=== PATIENT | male | born 1935 | race Caucasian/White ===

== ENCOUNTER 2023-07-27 17:38 | Emergency (ER) | payer OTHER, SELFPAY ==
[2023-07-27] VITALS (13 sets, daily range): BP systolic 168–245; BP diastolic 84–112; PULSE 58–88; RESP 20; TEMP 36.6; O2SAT 95–98
--- NOTE | 2023-07-27 17:30 | DI.RAD_ITS ---
Exam(s) XR HAND LT COMPLETE EXAM: XR HAND LT COMPLETE CLINICAL HISTORY: Fracture 4th and 5th finger. TECHNIQUE: 2D digital imaging was performed. COMPARISON: No exams were available for comparison FINDINGS: 3 views There is dislocation of the proximal interphalangeal joint of the 4th-ring finger. Multiple tiny hyp erdense foreign bodies are noted over the skin in this region. Overlapping bones on the lateral view makes accurate evaluation difficult. IMPRESSION: Dislocated proximal interphalangeal joint of the 4th-ring finger. DATA REPOSITORY: RADIATION DOSE DELIVERED:
--- NOTE | 2023-07-27 17:30 | DI.CT_ITS ---
Exam(s) CT HEAD FACIAL WO EXAM: CT HEAD FACIAL WO CLINICAL HISTORY: Fall, Left cheek injury. TECHNIQUE: Imaging Protocol: Axial computed tomography images with coronal and sagittal reformatted images were created and reviewed COMPARISON: No exams were available for comparison FINDINGS: BRAIN: There are no skull fractures nor fluid in the visualized paranasal sinuses. There is no evidence of intracranial hemorrhage, mass effect, or shift of midline structures. There are no extra-axial fluid collections. The ventricles are not enlarged or shifted and there is no blo od within the ventricular system nor within the basal cisterns. There is abundant bilateral periventricular hypodensity consistent with chronic small vessel disease. MAXILLOFACIAL CT SCAN: Mildly depressed predominately left-sided nasal bone fracture evident. No other facial fractures stephon ntified. No fluid in the paranasal sinuses. No evidence of orbital blowout fracture. IMPRESSION: No acute intracranial findings on this noninfused CT scan of the brain. Nasal bone fracture Called by myself to ER provider. RADIATION DOSE DELIVERED: Total DLP DATA REPOSITORY: All CT scans at this facility are submitted to the National Radiology Data Registry (NRDR) Dose Index Registry (DIR) with the [employer] (ACR). RADIATION OPTIMIZATION: All CT scans at this facility use at least one of these dose optimization te chniques: automated exposure control; mA and/or kV adjustment per patient size (includes targeted exa ms where dose is matched to clinical indication); or iterative reconstruction.
--- NOTE | 2023-07-27 17:44 | W.ED.GENAD ---
Discharge Plan Disposition Patient Disposition: Home Condition: Stable Discharge Details Clinical Impression: Dislocation of proximal interphalangeal joint of left ring finger, Closed head injury, Fall, Laceration of hand, left Primary Care Provider: Unknown,Unknown ED Provider: Josiane Lopez Meds and New Rx's Prescriptions: New cephalexin 500 mg tablet 500 mg PO BID 7 Days Qty: 14 0RF Continued atorvastatin 40 mg tablet 40 mg PO DAILY lisinopril 40 mg tablet 40 mg PO DAILY finasteride 5 mg tablet 5 mg PO DAILY Eliquis 2.5 mg tablet 2.5 mg PO BID tamsulosin 0.4 mg capsule 0.4 mg PO DAILY cyanocobalamin (vitamin B-12) 1,000 mcg capsule 1,000 mcg PO DAILY cholecalciferol (vitamin D3) [Vitamin D3] 50 mcg (2,000 unit) capsule 50 mcg PO QDAY Discharge Instructions Instructions: Laceration (ED), Head Injury (ED) Additional Instructions: Have sutures removed in 7-10 days. Leave the dressing on for the next 24 hours. After that you may take it off and wash under running soap and water. No soaking. Keep the splint on except for bathing for the next 7 days. There is no underlying broken bone but you did dislocate your finger. This was put back in place. Please take Tylenol or Ibuprofen with food every 4-6 hours as needed for pain and swelling. Apply ice and elevate in a couple of hours once the numbing medication wears off you will have some pain. There is also questionable left-sided broken nose noted on the CT. Is unclear whether this is new or old. Follow up with primary care provider in 3-5 days. Return to ED sooner if any worsening or concerns. Take the antibiotics as directed with yogurt or probiotic. Referrals: Primary Care Provider [Outside] - 1 week [facility] [Outside] - 5 days Discharge Data Discharge Date/Time-TO BE ENTERED AT DEPARTURE: 07/27/23 20:23 HPI General Mode of arrival: EMS. Date/Time Provider Initiated Documentation: 07/27/23 17:39. Limitations to Documentation: no limitations. Information obtained by: patient, EMS, RN notes reviewed and old records reviewed. HPI Narrative: 88-year-old male presents to the ER via EMS ambulatory in department with a chief complaint of mechanical fall prior to arrival. [facility]. He also injured his left hand. His ring was cut off by EMS prior to arrival. He does have a laceration and no deformity noted to his fourth and fifth fingers. He is on blood thinners but he does not remember the name of his medications. [facility] He is unsure if he hit his head however he does have a bruise noted to his left cheek and abrasions noted to his chin. Bleeding is controlled with pressure at this time. Past medical history includes aortic valve replacement Related Data Home Medications Medication Instructions Recorded Confirmed apixaban 2.5 mg tablet (Eliquis) 2.5 mg PO BID 07/27/23 07/27/23 atorvastatin 40 mg tablet 40 mg PO DAILY 07/27/23 07/27/23 cephalexin 500 mg tablet 500 mg PO BID 7 days #14 tabs 07/27/23 cholecalciferol (vitamin D3) 50 50 mcg PO QDAY 07/27/23 07/27/23 mcg (2,000 unit) capsule (Vitamin D3) cyanocobalamin (vitamin B-12) 1,000 mcg PO DAILY 07/27/23 07/27/23 1,000 mcg capsule finasteride 5 mg tablet 5 mg PO DAILY 07/27/23 07/27/23 lisinopril 40 mg tablet 40 mg PO DAILY 07/27/23 07/27/23 tamsulosin 0.4 mg capsule 0.4 mg PO DAILY 07/27/23 07/27/23 Previous Rx's Medication Instructions Recorded cephalexin 500 mg tablet 500 mg PO BID 7 days #14 tabs 07/27/23 Allergies Allergy/AdvReac Type Severity Reaction Status Date / Time No Known Allergies Allergy Unverified 07/27/23 17:38 General Stated Complaint: Laceration JANENE: 3 Review of Systems All systems reviewed & are unremarkable except as noted in HPI and below Constitutional Constitutional: Denies headache(s) ENT Ears, Nose, Mouth, and Throat: Denies headache(s) Musculoskeletal Musculoskeletal: Reports as per HPI Integumentary/Breasts Skin/Breast: Reports wounds Neurologic Neurologic: Denies headache(s) Exam Narrative Exam Narrative: General: Well Developed, Awake and Alert, conversant. Slightly confused. No focal neurodeficits noted. Skin: Warm and Dry HEENT: Head: No palpable deformities, Normocephalic does have a contusion noted to his left cheek, small superficial abrasions noted to his chin. Eyes: Pupils PERRLA, EOM's intact. No periorbital eccymosis or step off Ears: Canal patent. Tympanic membranes are clear . No olguin's sign, no hemptympanum. Nose/Face: Facial bones nontender to palpation and stable with manipulation. Mouth/Throat: No intraoral trauma. Teeth and mandible are intact. Neck: No midline tenderness, no step off, no deformity to palpation of C-spine. Trachea midline. Chest: No surface trauma. Nontender without crepitus or deformity. Lungs clear to ausculatation bilaterally. Heart: RRR, no rubs, murmurs or gallop. Abdomen: No abrasions, ecchymosis, or surface trauma. Nondistended. Nontender to palpation no guarding, rebound, or rigidity. Pelvis: Nontender to palpation and stable to compression. Femoral pulses strong and equal Extremities: Left hand fourth and fifth finger deformity and laceration on the palmar surface. Sensation intact. Peripheral pulses intact and equal. Neuro: ANO x4, GCS 15, cranial nerves II through XII intact. Motor and sensory exam nonfocal. Reflexes are symmetric. Extrem Left upper extremity: hand Details: abnormal to inspection Details: a deformity Location: of the 4th digit, abnormal ROM of finger Details: unable to flex and laceration (Multiple, palmar surface on the base of ring finger and pinky finger) Hand/finger images: 1. Approximately 3 cm laceration 2. Approximately 2 cm laceration Course Vital Signs Vital signs: Vital Signs Temperature 36.6 C 07/27/23 17:33 Pulse 88 07/27/23 17:33 Respiratory Rate 20 07/27/23 17:33 Blood Pressure 245/99 H 07/27/23 17:33 Pulse Oximetry 97 07/27/23 17:33 Temperature 36.6 C 07/27/23 17:33 Temperature Source Skin 07/27/23 17:33 Pulse 88 07/27/23 17:33 Respiratory Rate 20 07/27/23 17:33 Respiratory Effort Normal, Non-Labored 07/27/23 17:36 Blood Pressure 245/99 H 07/27/23 17:33 Blood Pressure Position Sitting 07/27/23 17:33 Pulse Oximetry 97 07/27/23 17:33 Oxygen Delivery Method Room Air 07/27/23 17:33 Oxygen Flow Rate 0 07/27/23 17:33 Pain Level 4 07/27/23 17:33 Procedures Laceration Laceration 1: Site: hand (4th finger palmar side) Side (If applicable): left Size (cm): 3 Description: irregular Depth: simple, single layer Local Anesthetic: Lidocaine 1% Pre-repair: wound explored and irrigated extensively Skin layer closed with: nylon Size (cm): 4-0 Number of sutures: 7 Technique: simple, interrupted Laceration 2: Site: hand (pinky finger left hand palmar side) Side (If applicable): left Size (cm): 2 Description: irregular Depth: simple, single layer Local Anesthetic: Lidocaine 1% Pre-repair: wound explored, irrigated extensively and deep structures intact Skin layer closed with: nylon Size (cm): 4-0 Number of sutures: 4 Technique: simple, interrupted Nerve Block Nerve Block 1: Time out performed: Yes Local Anesthetic: Lidocaine 1% Amount of anesthesia used (mL): 6 Side: left Nerve Blocks: digital (4th and 5th fingers 4 sided ring block) Procedure Successful: Yes Patient Tolerated Procedure: well Complications: none Orthopedic Joint Reduction Joint #1: Time Out Performed: Yes Side: left Joint Reduction Location: finger (Assisted by Dr. Ernandez , 4th left ring finger) Analgesia: digital block Local Anesthesia: Lidocaine 1% Technique used: traction/counter-traction Post-reduction neuro exam: intact Post-reduction vascular: intact Post Reduction X-Ray Obtained: Yes Medical Decision Making 88-year-old male presents to the ER via EMS ambulatory in department with a chief complaint of mechanical fall prior to arrival. He reports that he was at the [facility] fell hitting the left side of his cheek. He also injured his left hand. His ring was cut off by EMS prior to arrival. He does have a laceration and no deformity noted to his fourth and fifth fingers. He is on blood thinners but he does not remember the name of his medications. [facility] He is unsure if he hit his head however he does have a bruise noted to his left cheek and abrasions noted to his chin. Bleeding is controlled with pressure at this time. Past medical history includes aortic valve replacement EMS reports open fracture noted to his left hand, x-ray ordered, hand is wrapped in gauze, CT head and facial was ordered, labs and cefazolin for possible open fracture. Digital block performed on fourth and fifth digits with 1% lidocaine, Dr. Scherer assisted with reduction of finger dislocation. Postreduction x-ray ordered and is at bedside at this time. Wound irrigated with normal saline and chlorhexidine. Will plan to close lacerations with sutures. Successful reduction of the dislocation of the fourth proximal interphalangeal joint is noted on x-ray below. Wound cleaned with chlorhexidine and sterile normal saline and irrigated. Laceration was anesthetized with digital block as noted below above. Laceration was approximated with 7 simple interrupted sutures on the ring finger. 4 simple interrupted sutures on the pinky finger. Finger splint placed to ring finger, Xeroform dressing applied and Curlex wrap. Will instruct patient to have sutures removed in 7 days. Keep the splint on except for bathing. Patient will be given cephalexin to go home with for possible open dislocation to treat empirically for infection. Patient was given cefazolin I was the 2 g here in the department. 1956: Informed by staff physician that patient is bleeding through dressing, probably due to being on Eliquis, will place surgicel on area and pressure dressing. Surgicel not needed, reinforce dressing by staff physician. Bleeding controlled prior to patient being discharged into the care of his family. This text was generated using [employer] dictation system, please disregard any oddities of phrase or misspellings. Imaging Data Radiologic Study: Imaging: X-Ray Radiologist's impression: EXAM: XR HAND LT COMPLETE CLINICAL HISTORY: Fracture 4th and 5th finger. TECHNIQUE: 2D digital imaging was performed. COMPARISON: No exams were available for comparison FINDINGS: 3 views There is dislocation of the proximal interphalangeal joint of the 4th-ring finger. Multiple tiny hyperdense foreign bodies are noted over the skin in this region. Overlapping bones on the lateral view makes accurate evaluation difficult. IMPRESSION: Dislocated proximal interphalangeal joint of the 4th-ring finger. Radiologic Study #2: Imaging: CT Scan Radiologist's impression: EXAM: CT HEAD FACIAL WO CLINICAL HISTORY: Fall, Left cheek injury. TECHNIQUE: Imaging Protocol: Axial computed tomography images with coronal and sagittal reformatted images were created and reviewed COMPARISON: No exams were available for comparison FINDINGS: BRAIN: There are no skull fractures nor fluid in the visualized paranasal sinuses. There is no evidence of intracranial hemorrhage, mass effect, or shift of midline structures. There are no extra-axial fluid collections. The ventricles are not enlarged or shifted and there is no blood within the ventricular system nor within the basal cisterns. There is abundant bilateral periventricular hypodensity consistent with chronic small vessel disease. MAXILLOFACIAL CT SCAN: Mildly depressed predominately left-sided nasal bone fracture evident. No other facial fractures identified. No fluid in the paranasal sinuses. No evidence of orbital blowout fracture. Radiologic Study #3: Imaging: X-Ray Radiologist's impression: IMPRESSION: 1. Successful reduction of the previous 4th finger PIP joint dislocation now anatomically aligned. 2. There are few miniscule capsular avulsion fragments at the lateral joint line but no delta macro fracture. 3. Numerous punctate radiodensities over the proximal 2nd through 5th fingers probably representing extrinsic material although can not exclude punctate foreign bodies. 4. Osteoarthritic changes. Lab Data Lab results reviewed: Yes I reviewed the patient's lab results. Labs: Laboratory Tests Range/Units 07/27/23 17:50 WBC (4.4-10.8) 10^3/uL 6.96 RBC (4.36-5.78) 10^6/uL 5.13 Hgb (13.5-17.5) g/dL 16.1 Hct (40.0-50.0) % 46.9 MCV (80-95) fL 91 MCH (27.0-33.0) pg 31.4 MCHC (32.0-36.0) % 34.3 RDW (11.8-14.1) % 12.7 Plt Count (130-400) 10^3/uL 169 MPV (8.0-11.0) fL 11.2 H Immature Gran % 0.3 Neutrophils % 74.8 Lymphocytes % 10.9 Monocytes % 9.9 Eosinophils % 3.2 Basophils % 0.9 Nucleated RBC % (0.0-0.3) % 0.0 Absolute Neutrophils (1.2-6.7) 10^3/uL 5.21 Absolute Lymphocytes (1.2-3.4) 10^3/uL 0.76 L Absolute Monocytes (0.1-0.8) 10^3/uL 0.69 Absolute Eosinophils (0.0-0.7) 10^3/uL 0.22 Absolute Basophils (0.0-0.2) 10^3/uL 0.06 PT (9.1-11.1) sec 10.7 INR (0.9-1.1) 1.1 APTT (23.6-32.8) sec 27.6 Sodium (136-145) mmol/L 144 Potassium (3.5-5.1) mmol/L 4.0 Chloride (98-107) mmol/L 107 Carbon Dioxide (21.0-32.0) mmol/L 28.7 Anion Gap (3-11) mmol/L 8.3 BUN (7-18) mg/dL 29 H Creatinine (0.70-1.30) mg/dL 1.4 H Est GFR (CKD-EPI 2020) (mL/min/1.73m2) 48.34 Glucose (74-106) mg/dL 105 Calcium (8.5-10.1) mg/dL 8.7 Magnesium (1.8-2.4) mg/dL 1.8 Total Bilirubin (0.2-1.0) mg/dL 0.9 AST (15-37) U/L 17 ALT (16-63) U/L 25 Alkaline Phosphatase (46-116) U/L 87 Total Protein (6.4-8.2) g/dL 7.6 Albumin (3.4-5.0) g/dL 3.7 Quality:SDOH Health Related Social Needs: No Data to Display PFSH All Active Problems (Updated 07/27/23 @ 19:45 by Josiane Lopez NP) Laceration of hand, left (Acute) Fall (Acute) Closed head injury (Acute) Dislocation of proximal interphalangeal joint of left ring finger (Acute) Social History Smoking/Tobacco Use Status: Former Tobacco Use Smoking risk assessment performed?: Yes Alcohol Intake: never Drug use: Never Substance use type: does not use Details: quit smoking 30 years ago
[2023-07-27 17:58] LABS: Abs Immature Grans 0.02 10^3/uL (0.0-0.06); Absolute Basophil Count 0.06 10^3/uL (0.0-0.2); Absolute Eosinophil Count 0.22 10^3/uL (0.0-0.7); Absolute Lymphocyte Count 0.76 10^3/uL (1.2-3.4); Absolute Monocyte Count 0.69 10^3/uL (0.1-0.8); Absolute Neutrophil Count 5.21 10^3/uL (1.2-6.7); Basophils % 0.9; Eosinophils % 3.2; HCT 46.9 % (40.0-50.0); HGB 16.1 g/dL (13.5-17.5); Immature Grans % 0.3; Lymphocytes % 10.9; MCH 31.4 pg (27.0-33.0); MCHC 34.3 % (32.0-36.0); MCV 91 fL (80-95); MPV 11.2 fL (8.0-11.0); Monocytes % 9.9; Neutrophils % 74.8; Platelet Count 169 10^3/uL (130-400); RBC 5.13 10^6/uL (4.36-5.78); RDW 12.7 % (11.8-14.1); RDW-SD 42.8 fL; WBC 6.96 10^3/uL (4.4-10.8)
[2023-07-27 18:12] LABS: INR 1.1 (0.9-1.1); PTT Activated 27.6 sec (23.6-32.8); Prothrombin Time 10.7 sec (9.1-11.1)
[2023-07-27 18:13] LABS: ALT 25 U/L (16-63); AST 17 U/L (15-37); Albumin 3.7 g/dL (3.4-5.0); Alkaline Phosphatase 87 U/L (46-116); Anion Gap 8.3 mmol/L (3-11); BUN 29 mg/dL (7-18); Bilirubin, Total 0.9 mg/dL (0.2-1.0); CO2 28.7 mmol/L (21.0-32.0); CREATININE 1.4 mg/dL (0.70-1.30); Calcium 8.7 mg/dL (8.5-10.1); Chloride 107 mmol/L (98-107); Estimated GFR 48.34 (mL/min/1.73m2); Glucose 105 mg/dL (74-106); Magnesium 1.8 mg/dL (1.8-2.4); Sodium 144 mmol/L (136-145); Total Protein 7.6 g/dL (6.4-8.2)
[2023-07-27] MEDS: ceFAZolin 2 GM/50 ML BAG IVPB (18:20)
--- NOTE | 2023-07-27 18:45 | DI.RAD_ITS ---
Exam(s) XR HAND LT LIMITED EXAM: XR HAND LT LIMITED CLINICAL HISTORY: Post reduction. TECHNIQUE: 2D digital imaging was performed. COMPARISON: CR XR HAND LT COMPLETE from 07/27/2023 FINDINGS: Two views: There has been successful realignment of the proximal interphalangeal joint of the 4th-ring finger. No fracture lines evident. Numerous tiny punctate radiopaque are again noted over the proximal aspec t of the 3rd, 4th, and 5th fingers which are either on the skin or possibly foreign bodies. IMPRESSION: Successful reduction, as described above. DATA REPOSITORY: RADIATION DOSE DELIVERED:
--- NOTE | 2023-07-27 19:43 | DI.VRAD_ITS ---
PROCEDURE INFORMATION: Exam: XR Left Hand Exam date and time: 07/27/2023 6:57 PM Age: 88 years old Clinical indication: Injury or trauma; Fall; Dislocation; Severity not specified; Left; Ring finger TECHNIQUE: Imaging protocol: Radiologic exam of the left hand. Views: 3 or more views. COMPARISON: CR XR HAND LT COMPLETE 07/27/2023 6:12 PM FINDINGS: Bones/joints: Previous 4th finger PIP dislocation has been successfully reduced, now in anatomic alignment. A few miniscule less than 1 mm calcifications at the lateral joint line suggesting minimal capsular avulsion fragments without delta macro fracture. Moderate interphalangeal osteoarthritic changes. Mild osteoarthritic changes at the STT joint and 1st MCP joint. Soft tissues: Soft tissue swelling in the 4th finger. Overlying bandaging with punctate radiodensity scattered over the proximal 3rd through 5th fingers, probably extrinsic although can not exclude punctate foreign bodies. IMPRESSION: 1. Successful reduction of the previous 4th finger PIP joint dislocation now anatomically aligned. 2. There are few miniscule capsular avulsion fragments at the lateral joint line but no delta macro fracture. 3. Numerous punctate radiodensities over the proximal 2nd through 5th fingers probably representing extrinsic material although can not exclude punctate foreign bodies. 4. Osteoarthritic changes. Dictated and Authenticated by: Mikhail Wilder MD. Ordering:LORRIE Joshua MD
[2023-07-27] MEDS: Cephalexin 500 MG CAP, 2 CAPS/BTL PO (19:57)
[2023-07-27] MEDS: Lidocaine 1% Multi-Dose 20 ML VIAL IJ (20:19)
== END 2023-07-27 20:23 | disposition home or self-care (01) ==
LOC: ER 20:22
PROVIDERS: Emergency Provider Registered Nurse Emergency
DX: S63.285A Dislocation of proximal interphalangeal joint of left ring finger, initial encounter (principal); S61.217A Laceration without foreign body of left little finger without damage to nail, initial encounter; S61.215A Laceration without foreign body of left ring finger without damage to nail, initial encounter; W18.09XA Striking against other object with subsequent fall, initial encounter; S09.90XA Unspecified injury of head, initial encounter; Z79.01 Long term (current) use of anticoagulants
CPT/HCPCS: 12002; 26770; 80053; 90471; 90715; 96365; 99285; 70450; 70486; 73120; 73130; 83735; 85025; 85610; 85730; 99284; J0690; J2003

== ENCOUNTER 2023-08-06 14:42 | Emergency (ER) | payer OTHER, SELFPAY ==
[2023-08-06 15:00] VITALS: BP 218/85; PULSE 64; RESP 16; TEMP 36.7; O2SAT 94
== END 2023-08-06 15:43 ==
LOC: ER 14:50
DX: Z53.21 Procedure and treatment not carried out due to patient leaving prior to being seen by health care provider (principal)

== ENCOUNTER 2023-08-08 13:01 | Emergency (ER) | payer OTHER, SELFPAY ==
[2023-08-08 13:33] VITALS: BP 185/73; PULSE 65; RESP 16; TEMP 36.9; O2SAT 96
--- NOTE | 2023-08-08 13:42 | ED.GENADUL_ITS ---
Discharge Plan Disposition Patient Disposition: Home Condition: Good Discharge Details Clinical Impression: Encounter for removal of sutures Primary Care Provider: Unknown,Unknown ED Provider: Lacho Sampson Home Meds and New Rx's Prescriptions: No Action atorvastatin 40 mg tablet 40 mg PO DAILY lisinopril 40 mg tablet 40 mg PO DAILY finasteride 5 mg tablet 5 mg PO DAILY Eliquis 2.5 mg tablet 2.5 mg PO BID tamsulosin 0.4 mg capsule 0.4 mg PO DAILY cyanocobalamin (vitamin B-12) 1,000 mcg capsule 1,000 mcg PO DAILY cholecalciferol (vitamin D3) [Vitamin D3] 50 mcg (2,000 unit) capsule 50 mcg PO QDAY Discharge Instructions Additional Instructions: Your sutures have been removed. Please apply moisturizing or triple antibiotic ointment to the area until the scabs resolve. If you notice any worsening of your symptoms, or any new symptoms such as vomiting, diarrhea, fever, chills, shortness of breath, chest pain, numbness, weakness, or fainting , please return immediately to the emergency department for reevaluation. Please follow up with your primary care provider as soon as possible for reassessment and reevaluation. As always, it was a pleasure participating in your medical care today. HPI General Date/Time Provider Initiated Documentation: 08/08/23 13:42 . HPI Narrative: Patient presents for suture removal. All sutures were removed from fingers from previous laceration. No complications Related Data Home Medications Medication Instructions Recorded Confirmed apixaban 2.5 mg tablet (Eliquis) 2.5 mg PO BID 07/27/23 08/08/23 atorvastatin 40 mg tablet 40 mg PO DAILY 07/27/23 08/08/23 cholecalciferol (vitamin D3) 50 50 mcg PO QDAY 07/27/23 08/08/23 mcg (2,000 unit) capsule (Vitamin D3) cyanocobalamin (vitamin B-12) 1,000 mcg PO DAILY 07/27/23 08/08/23 1,000 mcg capsule finasteride 5 mg tablet 5 mg PO DAILY 07/27/23 08/08/23 lisinopril 40 mg tablet 40 mg PO DAILY 07/27/23 08/08/23 tamsulosin 0.4 mg capsule 0.4 mg PO DAILY 07/27/23 08/08/23 Allergies Allergy/AdvReac Type Severity Reaction Status Date / Time No Known Allergies Allergy Unverified 08/08/23 13:36 General Stated Complaint: SutureRem JANENE: 5 Review of Systems All systems reviewed & are unremarkable except as noted in HPI and below Exam Narrative Exam Narrative: Lungs: Clear lungs throughout, no wheezes rales or rhonchi. Fingers on the left hand previous laceration sites demonstrate good wound edge reapproximation, no evidence of dehiscence. No erythema or discharge. Course Vital Signs Vital signs: Vital Signs Temperature 36.9 C 08/08/23 13:33 Pulse 65 08/08/23 13:33 Respiratory Rate 16 08/08/23 13:33 Blood Pressure 185/73 H 08/08/23 13:33 Pulse Oximetry 96 08/08/23 13:33 Temperature 36.9 C 08/08/23 13:33 Temperature Source Temporal Artery Scan 08/08/23 13:33 Pulse 65 08/08/23 13:33 Respiratory Rate 16 08/08/23 13:33 Respiratory Effort Normal, Non-Labored 08/08/23 13:35 Blood Pressure 185/73 H 08/08/23 13:33 Blood Pressure Position Sitting 08/08/23 13:33 Pulse Oximetry 96 08/08/23 13:33 Oxygen Delivery Method Room Air 08/08/23 13:33 Oxygen Flow Rate 0 08/08/23 13:33 Pain Level 0 08/08/23 13:36 Medical Decision Making Patient presents for suture removal. All sutures were removed from fingers from previous laceration. No complications All sutures were removed without complication, good wound edge reapproximation. No signs of dehiscence or infection. Lungs are clear on exam. Patient discharged home. Discussed red flags which to return. I have extensively reviewed the treatment plan and discharge instructions with the patient and their family. I have addressed all patient concerns at this time. The patient and family was made aware of what symptoms to monitor for that would warrant a return to the emergency department. Discussed the plan with the patient and family, they demonstrate verbal understanding and agreement with our assessment and plan at this time. The documentation in this chart was dictated using [employer] dictation software. Please excuse any dictation errors. Quality:SDOH Health Related Social Needs: No Data to Display PFSH All Active Problems Encounter for removal of sutures (Acute) Laceration of hand, left (Acute) Fall (Acute) Closed head injury (Acute) Dislocation of proximal interphalangeal joint of left ring finger (Acute) Social History Smoking/Tobacco Use Status: Former Tobacco Use Smoking risk assessment performed?: Yes Alcohol Intake: never Drug use: Never Substance use type: does not use Details: quit smoking 30 years ago Housing: house Do you feel safe at home: Yes Do you feel safe in your relationship?: Yes
== END 2023-08-08 13:58 | disposition home or self-care (01) ==
PROVIDERS: Emergency Provider Student in an Organized Health Care Education/Training Program
DX: Z48.02 Encounter for removal of sutures (principal)
CPT/HCPCS: 99281